=== PATIENT | male | born 1985 | race African-American/Black ===

== ENCOUNTER 2022-06-28 12:51 | Inpatient (IN) | payer BC, OTHER ==
[2022-06-28 14:03] LABS: Hemoglobin 14.6 g/dL (13.5-17.5); Mean Corpuscular HGB CONC 31.7 g/dL (32.0-36.0); Mean Corpuscular Hemoglobin 28.3 pg (27.0-33.0); Mean Corpuscular Volume 89.3 fl (81.2-95.1); Mean Platelet Volume 11.6 fl (7.4-10.4); Platelet Count 370 10x3/uL (150-450); RBC Distribution Width 12.9 % (11.5-14.5); Red Blood Cell (RBC) Count 5.15 10x6/uL (4.32-5.72); White Blood Cell (WBC) Count 34.7 10x3/uL (3.5-10.5)
[2022-06-28] MEDS ORDERED: Ondansetron PF 4 MG/2 ML Vial ONE (14:05)
[2022-06-28 14:13] LABS: Bilirubin Neg (Negative); Blood, Urine 50 (Negative); Clarity Clear (Clear); Glucose, Urine (Dipstick) >=1000 mg/dL (Negative); Ketone, Urine 150 mg/dL (Negative); Leukocyte Negative (Negative); Nitrite Negative (Negative); Protein, Urine (Dipstick) 30 mg/dl (Neg-Trace); Urobilinogen Normal mg/dL (Less than 2)
[2022-06-28 14:27] LABS: ALT (SGPT) 32 U/L (8-55); AST (SGOT) 32 U/L (5-34); Albumin 4.9 g/dL (3.5-5.0); Alkaline Phosphatase 168 U/L (40-110); BUN (Urea Nitrogen) 47 mg/dL (8.9-20.6); Bilirubin, Total 0.4 mg/dL (0.2-1.2); Calc. Creatinine Clearance 0 mL/min (70-130); Calcium 9.9 mg/dL (7.8-10.44); Chloride 100 mmol/L (98-107); Estimated GFR 27; Lipase 158 U/L (8-78); Protein, Total 8.9 g/dL (6.0-8.3); Sodium 134 mmol/L (136-145)
[2022-06-28 14:35] LABS: Bacteria/HPF None Seen HPF (None Seen); RBC/HPF None Seen HPF (0-3); Squamous Epithelial None Seen HPF (0-3); WBC/HPF None Seen HPF (0-3)
[2022-06-28 14:39] LABS: Carbon Dioxide Less than 8 mmol/L (22-29); Glucose 593 mg/dL (70-105); Potassium 6.7 mmol/L (3.5-5.1)
[2022-06-28 14:49] LABS: SARS-CoV-2 NAA Rapid Test Not Detected (NotDetected)
[2022-06-28] MEDS ORDERED: Insulin Regular 300 UNITS/3 ML VIAL ONE (15:09)
[2022-06-28] MEDS ORDERED: cefTRIAXone\\ROCEPHIN 2 GM VIAL ONE (15:09)
[2022-06-28] MEDS ORDERED: INSULIN REGULAR IN 0.9 % NACL 100 UNIT/100 ML BAG ONE (15:09)
[2022-06-28 15:13] LABS: Band 20 % (5-11); Lymphocytes 12 % (21-51); Monocytes 3 % (0-10); Myelocyte 5 % (0-0); Reactive Lymphocytes 3 % (0-10)
[2022-06-28 15:15] LABS: Neutrophil 57 % (42-75)
[2022-06-28] MEDS ORDERED: Sodium Bicarb 50 MEQ/50 ML Abboject 8.4% SYRINGE ONE (15:17)
[2022-06-28 15:19] LABS: Ovalocytes SLIGHT = 2-5 cells (100X) (0-1/hpf); Poikilocytosis MODERATE=16-30 cells (100X) (0-5/hpf)
[2022-06-28 15:20] LABS: Burr Cells MODERATE= 6-15 cells (100X) (0-1/hpf); Crenated RBC MODERATE= 6-15 cells (100X) (None Seen)
[2022-06-28 15:21] LABS: Large Platelets SLIGHT; Platelet Clumps SLIGHT; Platelet Morphology Comment Appears Adequate; Vacuoles SLIGHT
[2022-06-28 15:22] LABS: MDiff Complete? YES
[2022-06-28 15:25] LABS: Actual Bicarbonate (HCO3v) 3 mEq/L (22-28); Base Excess -29.2 mEq/L (-2.0 to +3.0); Calcium, Ionized (venous) 1.23 mmol/L (1.16-1.32); Chloride (VBG) 99 mmol/L (98-106); Hemoglobin (Hb) 15.6 g/dL (13.2-17.3); Potassium (VBG) 6.93 mmol/L (3.70-5.30); Puncture Site Other Site; RapidComm Collect By CBN; Sodium 135.1 mmol/L (133-146); pH (venous) 6.88 (7.32-7.43)
[2022-06-28] MEDS ORDERED: Dextrose 5 %-0.45 % NaCl 1,000 ML IV PRN ×2 (15:25→20:46)
[2022-06-28] MEDS ORDERED: NS 0.9% w/ 20 MEQ KCL 1,000 ML IV PRN ×3 (15:25→20:46)
[2022-06-28] MEDS ORDERED: D5 1/2 NS w/20 mEq KCL 1,000 ML IV PRN (15:25)
[2022-06-28] MEDS ORDERED: Sodium Chloride 0.9% 1,000 ML IV PRN ×8 (15:25→20:46)
[2022-06-28] MEDS ORDERED: Acetaminophen 325 MG TAB PO PRN (15:25)
[2022-06-28] MEDS ORDERED: Electrolyte Replacement Protocol 1 EACH IVPB ONE (15:25)
[2022-06-28] MEDS ORDERED: Ondansetron PF 4 MG/2 ML Vial IVP PRN (15:25)
[2022-06-28] MEDS ORDERED: Calcium Gluconate 9.2 MEQ in Sodium Chloride 0.9% 100 ML IVPB SCH (15:30)
[2022-06-28] MEDS ORDERED: INSULIN REGULAR IN 0.9 % NACL 100 UNIT in Premix Bag 1 BAG IVPB SCH (16:00)
[2022-06-28 16:13] LABS: BUN (Urea Nitrogen) 46 mg/dL (8.9-20.6); Calc. Creatinine Clearance 0 mL/min (70-130); Calcium 9.7 mg/dL (7.8-10.44); Chloride 101 mmol/L (98-107); Estimated GFR 29; Phosphorus 7.8 mg/dL (2.3-4.7); Sodium 135 mmol/L (136-145)
[2022-06-28 16:18] LABS: Troponin I Less than 0.010 ng/mL (< 0.028)
[2022-06-28 16:35] LABS: Carbon Dioxide Less than 8 mmol/L (22-29); Glucose 583 mg/dL (70-105); Potassium 7.1 mmol/L (3.5-5.1)
[2022-06-28] MEDS ORDERED: Sodium Bicarbonate 150 MEQ in Sterile Water Injection 1,000 ML IV SCH (17:00)
[2022-06-28 17:07] VITALS: BMI 23.0
[2022-06-28 17:12] LABS: Lactic Acid 3.7 mmol/L (0.5-2.2)
[2022-06-28] MEDS ORDERED: Enoxaparin Sodium 40 MG/0.4 ML SYRINGE SC SCH (17:30)
[2022-06-28] MEDS ORDERED: Piperacillin/Tazobactam 3.375 GM in Sodium Chloride 0.9% 100 ML IVPB SCH ×2 (18:00→20:00)
[2022-06-28] MEDS ORDERED: Prevnar 13-Val Conj/PF 0.5 ML SYRINGE IM ONE (18:00)
[2022-06-28 20:45] LABS: BUN (Urea Nitrogen) 43 mg/dL (8.9-20.6); Calc. Creatinine Clearance 43 mL/min (70-130); Chloride 111 mmol/L (98-107); Estimated GFR 35; Glucose 297 mg/dL (70-105); Potassium 4.6 mmol/L (3.5-5.1); Sodium 141 mmol/L (136-145)
[2022-06-28] MEDS ORDERED: Electrolyte Replacement Protocol 1 EACH IVPB PRN (20:46)
[2022-06-28] MEDS ORDERED: HUMULIN R 100 UNITS, Admixture Fee 1 EACH in Sodium Chloride 0.9% 100 ML IVPB SCH (21:00)
[2022-06-28 21:01] LABS: Creatinine, Urine Less than 20.00 mg/dL (63-166); Protein, Urine Random Quant 11 mg/dL (1-14)
[2022-06-28 21:27] LABS: Magnesium 2.8 mg/dL (1.6-2.6); Phosphorus 3.7 mg/dL (2.3-4.7)
[2022-06-28 21:41] LABS: Carbon Dioxide Less than 8 mmol/L (22-29)
[2022-06-28] MEDS: Sodium Bicarbonate 150 MEQ in Dextrose 5% in Water 1,000 ML IV SCH (23:16)
[2022-06-28] MEDS: NS 0.9% w/ 20 MEQ KCL 1,000 ML IV PRN (23:22)
[2022-06-28 23:41] LABS: Anion Gap 24 mmol/L (10-20); BUN (Urea Nitrogen) 41 mg/dL (8.9-20.6); Calc. Creatinine Clearance 44 mL/min (70-130); Calcium 9.2 mg/dL (7.8-10.44); Carbon Dioxide 10 mmol/L (22-29); Chloride 113 mmol/L (98-107); Estimated GFR 36; Glucose 171 mg/dL (70-105); Potassium 4.2 mmol/L (3.5-5.1); Sodium 143 mmol/L (136-145)
[2022-06-29] MEDS ORDERED: Piperacillin/Tazobactam 3.375 GM in Sodium Chloride 0.9% 100 ML IVPB SCH (00:01)
[2022-06-29] MEDS: NS 0.9% w/ 20 MEQ KCL 1,000 ML IV PRN (01:49)
[2022-06-29] MEDS: Piperacillin/Tazobactam 3.375 GM in Sodium Chloride 0.9% 100 ML IVPB SCH ×3 (03:29→21:16)
[2022-06-29] MEDS: Sodium Bicarbonate 150 MEQ in Dextrose 5% in Water 1,000 ML IV SCH ×2 (03:29→13:27)
[2022-06-29 04:16] LABS: Anion Gap 17 mmol/L (10-20); BUN (Urea Nitrogen) 34 mg/dL (8.9-20.6); Calc. Creatinine Clearance 51 mL/min (70-130); Calcium 8.4 mg/dL (7.8-10.44); Carbon Dioxide 16 mmol/L (22-29); Chloride 113 mmol/L (98-107); Estimated GFR 42; Glucose 176 mg/dL (70-105); Potassium 4.2 mmol/L (3.5-5.1); Sodium 142 mmol/L (136-145)
[2022-06-29] MEDS: D5 1/2 NS w/20 mEq KCL 1,000 ML IV PRN ×2 (05:02→10:33)
[2022-06-29 06:44] LABS: Anion Gap 16 mmol/L (10-20); BUN (Urea Nitrogen) 31 mg/dL (8.9-20.6); Calc. Creatinine Clearance 51 mL/min (70-130); Carbon Dioxide 18 mmol/L (22-29); Chloride 112 mmol/L (98-107); Estimated GFR 43; Glucose 193 mg/dL (70-105); Potassium 3.8 mmol/L (3.5-5.1); Sodium 142 mmol/L (136-145)
[2022-06-29] MEDS: Enoxaparin Sodium 40 MG/0.4 ML SYRINGE SC SCH (08:32)
[2022-06-29] MEDS ORDERED: FLU VACC QS2022-23(6MOS UP)/PF 60 MCG/0.5 ML SYRINGE IM ONE (09:00)
[2022-06-29] MEDS ORDERED: Lantus 1000 UNITS/10 ML VIAL SC SCH ×3 (09:00→21:00)
[2022-06-29] MEDS: Lantus 1000 UNITS/10 ML VIAL SC SCH (09:47)
[2022-06-29 09:51] LABS: Hemoglobin 11.4 g/dL (13.5-17.5); Mean Corpuscular HGB CONC 35.1 g/dL (32.0-36.0); Mean Corpuscular Hemoglobin 28.4 pg (27.0-33.0); Mean Platelet Volume 10.6 fl (7.4-10.4); Platelet Count 238 10x3/uL (150-450); RBC Distribution Width 12.8 % (11.5-14.5); Red Blood Cell (RBC) Count 4.01 10x6/uL (4.32-5.72); White Blood Cell (WBC) Count 21.3 10x3/uL (3.5-10.5)
[2022-06-29 11:10] LABS: Band 17 % (5-11); Eosinophils 1 % (0-10); Lymphocytes 3 % (21-51); Monocytes 4 % (0-10); Myelocyte 1 % (0-0); Reactive Lymphocytes 2 % (0-10)
[2022-06-29 11:13] LABS: Neutrophil 72 % (42-75)
[2022-06-29 11:14] LABS: Anisocytosis SLIGHT = 6-15 cells (100X) (0-5/hpf); Microcytosis SLIGHT = 6-15 cells (100X) (0-5/hpf); Ovalocytes SLIGHT = 2-5 cells (100X) (0-1/hpf)
[2022-06-29 11:15] LABS: Large Platelets SLIGHT; Platelet Morphology Comment Appears Adequate; Toxic Granulation SLIGHT
[2022-06-29 11:16] LABS: MDiff Complete? YES
[2022-06-29] MEDS: HumaLOG 300 UNITS/3 ML VIAL SC PRN (11:28)
[2022-06-29] MEDS ORDERED: Dextrose 50% Abboject 50 ML SYRINGE IVP PRN (11:30)
[2022-06-29] MEDS ORDERED: Dextrose 5% in Water 1,000 ML IV PRN (11:30)
[2022-06-29 13:28] LABS: Sodium, Urine 72 mmol/L (Not Available)
[2022-06-29 15:05] LABS: Hemoglobin A1c 9.5 % (4.0-6.0)
[2022-06-30] MEDS: Piperacillin/Tazobactam 3.375 GM in Sodium Chloride 0.9% 100 ML IVPB SCH (04:31)
[2022-06-30 05:22] LABS: #Basophils 0.1 10x3/uL (0.0-0.2); #Monocytes 0.8 10x3/uL (0.0-1.1); #Neutrophils 12.7 10x3/uL (1.5-8.4); %Basophils 0.3 % (0.0-2.0); %Eosinophils 0.2 % (0.0-6.0); %Lymphocytes 10.3 % (18.0-47.0); %Monocytes 5.4 % (0.0-10.0); %Neutrophils 82.9 % (40.0-75.0); Hemoglobin 11.8 g/dL (13.5-17.5); Mean Corpuscular HGB CONC 34.7 g/dL (32.0-36.0); Mean Corpuscular Hemoglobin 28.3 pg (27.0-33.0); Mean Corpuscular Volume 81.5 fl (81.2-95.1); Mean Platelet Volume 10.6 fl (7.4-10.4); Platelet Count 220 10x3/uL (150-450); RBC Distribution Width 13.3 % (11.5-14.5); Red Blood Cell (RBC) Count 4.17 10x6/uL (4.32-5.72); White Blood Cell (WBC) Count 15.4 10x3/uL (3.5-10.5)
[2022-06-30] MEDS: HumaLOG 300 UNITS/3 ML VIAL SC PRN (05:23)
[2022-06-30 06:50] LABS: Albumin 3.6 g/dL (3.5-5.0); Anion Gap 20 mmol/L (10-20); BUN (Urea Nitrogen) 19 mg/dL (8.9-20.6); BUN/Creatinine Ratio 11.18; Calc. Creatinine Clearance 60 mL/min (70-130); Calcium 8.7 mg/dL (7.8-10.44); Carbon Dioxide 18 mmol/L (22-29); Chloride 106 mmol/L (98-107); Estimated GFR 52; Glucose 200 mg/dL (70-105); Magnesium 2.2 mg/dL (1.6-2.6); Potassium 3.8 mmol/L (3.5-5.1); Sodium 140 mmol/L (136-145)
[2022-06-30] MEDS: Enoxaparin Sodium 40 MG/0.4 ML SYRINGE SC SCH (08:32)
[2022-06-30] MEDS: Lantus 1000 UNITS/10 ML VIAL SC SCH (08:32)
[2022-06-30] MEDS ORDERED: PHOS-NAK 1 PKT PACK PO SCH (09:00)
[2022-06-30] MEDS ORDERED: Sodium Bicarbonate Tab 325 MG TAB PO SCH (09:00)
[2022-06-30] MEDS ORDERED: Lactated Ringer's 1,000 ML IV SCH ×2 (09:45→10:19)
[2022-06-30 12:01] VITALS: BP 139/76; TEMP 98.6
== END 2022-06-30 13:28 | disposition home or self-care (01) | DRG 637 ==
LOC: CSHERS 12:51 → CSHIMCU 16:16 → CSHTELE 06-29 12:44
PROVIDERS: ADMIT Internal Medicine; ATTEND Internal Medicine
DX: E11.10 Type 2 diabetes mellitus with ketoacidosis without coma (principal); R65.11 Systemic inflammatory response syndrome (SIRS) of non-infectious origin with acute organ dysfunction; N17.9 Acute kidney failure, unspecified; Z20.822 Contact with and (suspected) exposure to COVID-19; E87.5 Hyperkalemia; N18.2 Chronic kidney disease, stage 2 (mild); E11.22 Type 2 diabetes mellitus with diabetic chronic kidney disease; I12.9 Hypertensive chronic kidney disease with stage 1 through stage 4 chronic kidney disease, or unspecified chronic kidney disease; E78.5 Hyperlipidemia, unspecified; E86.0 Dehydration; D72.829 Elevated white blood cell count, unspecified; Z79.899 Other long term (current) drug therapy; Z79.4 Long term (current) use of insulin; Z79.84 Long term (current) use of oral hypoglycemic drugs
CPT/HCPCS: 36415; 36416; 71045; 76770; 80048; 80053; 80069; 81003; 81015; 82010; 82570; 82805; 83036; 83605; 83690; 83735; 84100; 84145; 84156; 84300; 84484; 85025; 87040; 87086; 90471; 90670; 90686; 93005; 96361; 96365; 96375; 96376; A4217; G0008; G0009; J0610; J0696; J1650; J1815; J2405; J2543; J3480; J3490; J7070; J7120